=== PATIENT | female | born 1980 | race African-American/Black ===

== ENCOUNTER 2018-12-01 19:23 | Emergency (ER) | payer SELFPAY ==
[~2018-12-01] VITALS: Ht 162.6 cm; Wt 61.2 kg
[2018-12-01 19:51] VITALS: BP 133/66
--- NOTE | 2018-12-01 22:04 | NUR ---
BIB SELF. AAOX4. NAD, BREATHING EVEN AND UNLABORED. AMBULATORY. C/O RUQ ABDOMEN PAIN AND R MID BACK PAIN X 4 DAY. SHARP STABBING PAIN 02/12. +N/V, -D. DENIES CP. TO ER BED 1. JIMMY THOMAS AT BEDSIDE FOR EVAL.
--- NOTE | 2018-12-01 22:22 | NUR ---
URINE COLLECTED. SENT TO LAB
[2018-12-01] MEDS ORDERED: MORPHINE SULFATE INJ 4 MG/ML DISP.SYRIN ONE (22:24)
[2018-12-01] MEDS ORDERED: MORPHINE SULFATE INJ 2 MG/ML DISP.SYRIN ONE (22:24)
[2018-12-01] MEDS ORDERED: ONDANSETRON HCL/PF 4 MG/2 ML VIAL ONE (22:24)
--- NOTE | 2018-12-01 22:30 | NUR ---
IV LINE OBTAINED ON R AC 20G. BLOOD DRAWN AND GIVEN TO SALES [employer]UNICATIONS MANAGER AT BEDSIDE.
[2018-12-01 22:34] LABS: BASOPHILS % (AUTO) 0.4 % (0.0-2.0); EOSINOPHILS % (AUTO) 1.3 % (0.0-6.0); HEMATOCRIT 38 % (33-45); HEMOGLOBIN 13.4 g/dL (11.5-14.8); LYMPHOCYTES # (AUTO) 1.9 /CMM (0.8-4.8); LYMPHOCYTES % (AUTO) 24.3 % (20.0-44.0); MEAN CORPUSCULAR HGB CONC 35 g/dl (31.0-36.0); MEAN CORPUSCULAR VOLUME 97 fL (82-100); MONOCYTES # (AUTO) 0.7 /CMM (0.1-1.30); MONOCYTES % (AUTO) 9.2 % (2.0-12.0); NEUTROPHILS # (AUTO) 5.1 /CMM (1.8-8.9); NEUTROPHILS % (AUTO) 64.8 % (43.0-81.0); PLATELET COUNT (AUTO) 201 /CMM (150-450); RED BLOOD CELL COUNT(AUTO) 3.96 MIL/uL (4.0-5.2); WHITE BLOOD COUNT (AUTO) 7.8 K/uL (4.3-11.0)
[2018-12-01 22:34] LABS: APPEARANCE,URINE Slightly Cloudy (CLEAR); BILIRUBIN,URINE Negative (NEGATIVE); BLOOD, URINE Moderate Ery/uL (NEGATIVE); COLOR,URINE Yellow (YELLOW); KETONES,URINE Trace (NEGATIVE); LEUKOCYTE ESTERASE ,URINE Trace (NEGATIVE); NITRITE, URINE Negative (NEGATIVE); PH,URINE 5.5 (5.0-8.0); PROTEIN,URINE Negative (NEGATIVE); UGLUCOSE Negative (NEGATIVE); UROBILINOGEN,URINE 0.2 EU/dL (0.2)
[2018-12-01] MEDS: IV NS 0.9% 1,000 ML BAG IV ONE (22:37)
[2018-12-01] MEDS: MORPHINE SULFATE INJ 2 MG/ML DISP.SYRIN IV ONE (22:38)
[2018-12-01] MEDS: ONDANSETRON HCL/PF 4 MG/2 ML VIAL IVP ONE (22:38)
[2018-12-01 22:41] LABS: CALCIUM, SERUM 8.2 mg/dL (8.5-10.1); CREATININE 0.6 mg/dL (0.6-1.3); POTASSIUM 3.8 mmol/L (3.5-5.1)
[2018-12-01 22:47] LABS: ALBUMIN 3.4 g/dL (3.4-5.0); BILIRUBIN,TOTAL 0.2 mg/dL (0.2-1.0); TOTAL PROTEIN, SERUM 6.5 g/dL (6.4-8.2)
--- NOTE | 2018-12-01 23:15 | NUR ---
PT IS NOTED NOT IN THE ROOM @ 2305. PT ELOPED. JIMMY AGUILAR AWARE. PT STILL HAVE AN IV LINE ON HER R AC 20G.
--- NOTE | 2018-12-02 00:43 | NUR ---
CALLED NATALIE TO REPORT PT ELOPED WITH AN IV LINE STILL INTACT WITH THE PT. LEAN FACILITATOR# [id number], INCIDENT # [id number]
[2018-12-02 00:44] LABS: BACTERIA,URINE Moderate /HPF (None Seen); SQUAMOUS EPITHELIAL CELL,UR Moderate /HPF (None Seen)
== END 2018-12-01 23:25 | disposition left against medical advice (07) ==
LOC: ER 19:27
DX: R10.11 Right upper quadrant pain (principal); R10.31 Right lower quadrant pain; R10.13 Epigastric pain; Z90.89 Acquired absence of other organs; Z88.6 Allergy status to analgesic agent
CPT/HCPCS: 36415; 74176; 76705; 80048; 80076; 81001; 83690; 84703; 85025; 87086; 96361; 96374; 96375; 99284; J2270 ×2; J2405; J7030; 81000-TC